=== PATIENT | male | born 1970 | race Caucasian/White ===

== ENCOUNTER → 2024-03-19 | Day surgery (SDC) | payer OTHER ==
[~2024-03-19] MED LIST: DEXMEDETOMIDINE HCL 200 MCG/2 ML VIAL ONE; LISINOPRIL2.5 MG PO; PROPOFOL IV EMULSION 10 MG/ML 20 ML VIAL ONE
[2024-03-19] MEDS: LACTATED RINGER'S 1,000 ML ONE (12:16)
[2024-03-19 14:35] VITALS: BP 109/62; PULSE 70; RESP 18; TEMP 97.6; O2SAT 95
== END | disposition home or self-care (01) ==
LOC: ENDO 11:47
PROVIDERS: ATTEND Internal Medicine Gastroenterology
DX: K22.2 Esophageal obstruction (principal); K29.70 Gastritis, unspecified, without bleeding; K22.10 Ulcer of esophagus without bleeding; K44.9 Diaphragmatic hernia without obstruction or gangrene; Z71.3 Dietary counseling and surveillance; I10 Essential (primary) hypertension; Z71.89 Other specified counseling; Z79.899 Other long term (current) drug therapy; Z68.24 Body mass index [BMI] 24.0-24.9, adult
CPT/HCPCS: 43248; J2470; J2704; J7121; 43450